=== PATIENT | female | born 1975 | race Caucasian/White ===

== ENCOUNTER 2024-11-14 15:33 | Outpatient (CLI) | payer BC, SELFPAY ==
[2024-11-14 23:20] LABS: Chlamydia DNA Amplified* NOT DETECTED (No Detected); GC DNA Amplified* NOT DETECTED (No Detected)
== END 2024-11-14 15:34 | disposition home or self-care (01) ==
LOC: LKVREF 15:33
PROVIDERS: Visit Provider Physician Assistant
DX: N94.89 Other specified conditions associated with female genital organs and menstrual cycle (principal)
CPT/HCPCS: 87491; 87591